=== PATIENT | female | born 1940 | race Caucasian/White ===

== ENCOUNTER 2019-02-09 08:35 | Observation (INO) | payer MEDICARE, SELFPAY ==
[2019-02-09] VITALS (12 sets, daily range): BP systolic 126–168; BP diastolic 57–115; PULSE 63–92; RESP 10–18; TEMP 36–36.7; O2SAT 97–100; BMI 22.3; BMI 22.6
--- NOTE | 2019-02-09 08:26 | ED_ITS ---
HPI - Chest Pain General Chief Complaint: Chest Pain Stated Complaint: Chest Pain, nausea Time Seen by Provider: 02/09/19 08:35 Source: patient and EMS Mode of arrival: EMS Limitations: no limitations History of Present Illness HPI narrative: Patient is a 78-year-old female with history of cardiac stents presenting with neck and shoulder pain. She states that for the last 10 days or so she has been quite fatigued. [place] is [place] cruise ship she has noted some chest discomfort off and on for the past 2 days. She can't discern when she notices it with exertion or at rest. It lasts for various length time. Every night she wakes up with pain across the base of her neck and top of her shoulders. She denies any shortness of breath. She lives in [place]. MD complaint: chest pain Onset (ago): day(s) Duration: intermittent Pain location: left chest Severity: mild Quality: aching Related Data Home Medications Medication Instructions Recorded Confirmed amlodipine 5 mg PO DAILY 02/09/19 02/09/19 aspirin [Justice Chewable Aspirin] 81 mg PO DAILY 02/09/19 02/09/19 famotidine [Pepcid] 20 mg PO BID 02/09/19 02/09/19 losartan 25 mg PO DAILY 02/09/19 02/09/19 pravastatin 20 mg PO DAILY 02/09/19 02/09/19 Allergies Allergy/AdvReac Type Severity Reaction Status Date / Time lisinopril Allergy Severe Cough Verified 02/09/19 08:33 risedronate sodium Allergy Severe Heartburn Verified 02/09/19 08:33 [From Actonel] cephalexin Allergy Mild Rash Verified 02/09/19 09:27 Review of Systems Review of Systems Narrative: GENERAL: Denies chills, fatigue, malaise, fever, sweats, travel HEENT: Denies sinus pain, ear pain, sore throat, difficulty swallowing, neck pain RESPIRATORY: Denies dyspnea, cough, wheezing, hemoptysis, sputum. CARDIOVASCULAR: See HPI GASTROINTESTINAL: Denies nausea, vomiting, abdominal pain, diarrhea, constipation, melena. : Denies dysuria, frequency, incontinence, hematuria, urinary retention, flank pain. MUSCULOSKELETAL: Denies weakness, joint pain, or bony pain SKIN: No rash, no erythema, no pruritus NEUROLOGIC: Denies weakness, dizziness, headache, numbness, change in speech, confusion PSYCHIATRIC: No concerning psychosocial issues. 12 point review of systems is negative except for those stated above and HPI [facility] Medical History (Updated 02/09/19 @ 11:57 by Taylor Crump DO) Coronary artery disease (Acute) Hyperlipidemia (Acute) Hypertension (Acute) Surgical History (Updated 02/09/19 @ 14:26 by Myrtle Leiva RN) Stented coronary artery (Acute) Family History (Updated 02/09/19 @ 14:27 by Myrtle Leiva RN) Father Emphysema lung Mother TIA (transient ischemic attack) Social History marital status: household members: spouse Smoking Status: Never smoker alcohol intake: never substance use type: does not use Family History (Updated 02/09/19 @ 14:27 by Myrtle Leiva RN) Father Emphysema lung Mother TIA (transient ischemic attack) Social History marital status: household members: spouse Smoking Status: Never smoker alcohol intake: never substance use type: does not use Exam Initial Vital Signs Initial Vital Signs: Vital Signs Temperature 97.7 F 02/09/19 08:24 Pulse Rate 92 H 02/09/19 08:24 Respiratory Rate 16 02/09/19 08:24 Blood Pressure 168/79 H 02/09/19 08:24 Pulse Oximetry 100 02/09/19 08:24 GENERAL: Well-appearing, well-nourished and in no acute distress. HEENT: Head atraumatic,EOMI, pupils reactive, face symmetric, moist mucous membranes CARDIOVASCULAR: Regular rate and rhythm without murmurs, rubs or gallops. RESPIRATORY: Breath sounds equal bilaterally, no wheezes rales or rhonchi. ABDOMEN: Soft, nontender. Normoactive bowel sounds all 4 quadrants. No guarding or rebound. EXTREMITIES: Normal range of motion, no clubbing or edema. Neurovascularly intact NEUROLOGICAL: Alert and oriented x4.Normal gait and speech. Cranial nerves II through XII grossly intact. SKIN: Warm, dry, no laceration, no petechiae, no rashes or lesions. Scores HEART Score Heart Score history: Moderately Suspicious Heart Score EKG: Normal Heart Score Age: > or = 65 years old Heart Score risk factors: > 3 risk factors or hx of atherosclerotic disease Heart Score troponin: < or = to normal limit Heart Score Total: 5 Course Orders Ordered: ED Orders 02/09/19 08:24 EKG-12 Lead Stat 02/09/19 08:25 XR chest 1V Stat 02/09/19 08:30 B Type Natriuretic Peptide Stat Complete Blood Count AUTO DIFF Stat Comprehensive Metabolic Panel Stat Lipase Stat Partial Thromboplastin Time Stat Prothrombin Time INR Stat Troponin & CK Cardiac Panel Stat 02/09/19 08:51 EKG-12 Lead Routine 02/09/19 10:50 Troponin I Stat 02/09/19 11:53 Education, smoking cessation ONGOING 02/10/19 Troponin I Stat EKG-12 Lead Routine 02/19/19 Troponin I Routine Amlodipine Besylate (Norvasc) 5 mg PO DAILY KEEGAN Aspirin (Aspirin Chew) 81 mg PO DAILY KEEGAN Enoxaparin Sodium (Lovenox) 40 mg SUBCUT DAILY KEEGAN Losartan Potassium (Cozaar) 25 mg PO DAILY KEEGAN Stored In Pharmacy 1 each PO PRN PRN PRN Reason: PER PROTOCOL Pravastatin Sodium (Pravachol) 20 mg PO DAILY KEEGAN Ranitidine HCl (Zantac) 150 mg PO BID KEEGAN Discontinued Medications Aspirin (Aspirin Chew) 324 mg PO NOW ONE Stop: 02/09/19 08:26 Last Admin: 02/09/19 08:43 Dose: 324 mg Documented by: ADILENE Vital Signs Vital signs: Vital Signs - 8 hr 02/09/19 09:35 02/09/19 10:36 02/09/19 11:00 Pulse Rate 71 70 63 Respiratory Rate 14 15 10 L Blood Pressure [Left Arm] 157/64 H 162/70 H 149/57 H Pulse Oximetry 100 98 97 02/09/19 12:00 Pulse Rate 73 Respiratory Rate 16 Blood Pressure [Left Arm] 154/65 H Pulse Oximetry 100 MDM - Chest Pain Lab Data Attestation: I reviewed the patient's lab results. Result diagrams: 02/09/19 08:30 02/09/19 08:30 Labs: Lab Results 02/09/19 02/09/19 02/09/19 Range/Units 08:30 08:30 08:30 WBC 7.9 (4.5-11.0) X10^3/uL RBC 4.62 (4.0-5.2) X10^6/uL Hgb 13.3 (12.0-16.0) g/dL Hct 39.7 (36-46) % MCV 85.9 (80-100) fL MCH 28.8 (26-34) PG MCHC 33.5 (30-36) % RDW 15.0 H (11.6-14.8) % Plt Count 183 (150-400) X10^3/uL Neut % (Auto) 75.7 H (50-75) % Lymph % (Auto) 18.9 L (25-40) % [place] % (Auto) 4.2 (3-14) % Eos % (Auto) 0.5 L (2-4) % Baso % (Auto) 0.7 (0-2) % Neut # (Auto) 6000 (1775-2920) /uL Lymph # (Auto) 1500 (5712-2829) /uL [place] # (Auto) 300 (0-900) /uL Eos # (Auto) 0 (0-450) /uL Baso # (Auto) 100 (0-100) /uL PT 10.6 (10.1-12.7) SECONDS INR 0.9 (0.9-1.3) APTT 30 (26.4-36.2) SECONDS Sodium 143 (137-145) mmol/L Potassium 3.8 (3.4-5.1) mmol/L Chloride 106 (98-107) mmol/L Carbon Dioxide 26 (22-32) mmol/L BUN 16 (7-17) mg/dL Creatinine 0.80 (0.52-1.04) mg/dL Estimated GFR > 60.0 (>60) mL/min BUN/Creatinine Ratio 20.0 (6-22) Glucose 114 H (80-110) mg/dL Calcium 9.1 (8.4-10.2) mg/dL Total Bilirubin 0.5 (0.2-1.3) mg/dL AST 26 (14-36) IU/L ALT 12 (9-52) IU/L Alkaline Phosphatase 72 (38-126) U/L Total Creatine Kinase 145 H (30-135) U/L CK-MB (CK-2) 1.40 (<2.37) ng/mL CK-MB (CK-2) Rel Index 1.0 L (1.5-5.0) % Troponin I < 0.012 (0.01-0.034) ng/mL B-Natriuretic Peptide 280 H (<100) Total Protein 7.8 (6.3-8.2) g/dL Albumin 4.6 (3.5-5.0) g/dL Globulin 3.2 (1.7-4.1) g/dL Albumin/Globulin Ratio 1.4 (1.0-2.8) Lipase 137 (23-300) U/L 02/09/19 Range/Units 10:50 WBC (4.5-11.0) X10^3/uL RBC (4.0-5.2) X10^6/uL Hgb (12.0-16.0) g/dL Hct (36-46) % MCV (80-100) fL MCH (26-34) PG MCHC (30-36) % RDW (11.6-14.8) % Plt Count (150-400) X10^3/uL Neut % (Auto) (50-75) % Lymph % (Auto) (25-40) % [place] % (Auto) (3-14) % Eos % (Auto) (2-4) % Baso % (Auto) (0-2) % Neut # (Auto) (0174-4241) /uL Lymph # (Auto) (8449-3792) /uL [place] # (Auto) (0-900) /uL Eos # (Auto) (0-450) /uL Baso # (Auto) (0-100) /uL PT (10.1-12.7) SECONDS INR (0.9-1.3) APTT (26.4-36.2) SECONDS Sodium (137-145) mmol/L Potassium (3.4-5.1) mmol/L Chloride (98-107) mmol/L Carbon Dioxide (22-32) mmol/L BUN (7-17) mg/dL Creatinine (0.52-1.04) mg/dL Estimated GFR (>60) mL/min BUN/Creatinine Ratio (6-22) Glucose (80-110) mg/dL Calcium (8.4-10.2) mg/dL Total Bilirubin (0.2-1.3) mg/dL AST (14-36) IU/L ALT (9-52) IU/L Alkaline Phosphatase (38-126) U/L Total Creatine Kinase (30-135) U/L CK-MB (CK-2) (<2.37) ng/mL CK-MB (CK-2) Rel Index (1.5-5.0) % Troponin I < 0.012 (0.01-0.034) ng/mL B-Natriuretic Peptide (<100) Total Protein (6.3-8.2) g/dL Albumin (3.5-5.0) g/dL Globulin (1.7-4.1) g/dL Albumin/Globulin Ratio (1.0-2.8) Lipase (23-300) U/L Urine Dip Bedside Urine Glucose Negative Bedside Urine Bilirubin - Negative Bedside Urine Ketone - Negative Urine Specific [place] 1.010 Bedside Urine Occult Blood - Negative Bedside Urine pH 7.0 Bedside Urine Protein - Negative Bedside Urine Urobilinogen - Negative Bedside Urine Nitrite - Negative Bedside Urine Leukocytes - Negative Esterase Imaging Data Chest x-ray: Radiologist's impression: PROCEDURE: XR CHEST 1V INDICATIONS: chest pain TECHNIQUE: One view of the chest was acquired. COMPARISON: None. FINDINGS: Surgical changes and devices: None. Lungs and pleura: Lungs are clear. No pleural effusions or pneumothorax. Mediastinum: Mediastinal contours appear normal. Heart size is normal. There is aortic atherosclerosis. Bones and chest wall: No suspicious bony lesions. The bone mineralization appears decreased. Overlying soft tissues appear unremarkable. IMPRESSION: No acute cardiopulmonary process is evident. Dictated by: Zi Garcia M.D. on 02/09/2019 at 7:50 ECG Data Attestation: I personally reviewed and interpreted this ECG as follows: Prior ECG tracings: not available for review Interpretation: Normal sinus rhythm rate 76 p.r. interval 149 QRS 83 QTC 418 T- wave inversion noted in lead 3 less than [address]-depression in V5 no ST elevations no priors to compare EKG 2. Sinus rhythm rate 77 persistent T-wave inversions noted in lead [address] changes MDM Narrative Medical decision making narrative: The patient remains chest pain-free in the ED she still has some intermittent left shoulder pain. She was under the impression she was being medevac back to [place]. I personally called our emergency insurance and they have not sent any sort of transportation. She has 2-troponins. With her history of coronary artery disease and symptoms I recommended cardiac rule out. Dr. river updated on patient's symptoms test results agrees with observation Discharge Plan Departure Patient Disposition: Admitted as Observation Clinical Impression: Chest pain Qualifiers: Chest pain type: unspecified Qualified Code(s): R07.9 - Chest pain, unspecified Discharge Date/Time: 02/09/19 13:15 Admit Date/Time: 02/09/19 12:26 Admit Provider: Carmella Burnette
[2019-02-09] MEDS: ASPIRIN 81 MG CHEW TAB 324 MG PO (08:43)
[2019-02-09 08:47] LABS: Add Manual Diff / Slide Review NO; Basophils Absolute Auto 100 /uL (0-100); Basophils Percent Auto 0.7 % (0-2); Eosinophils Absolute Auto 0 /uL (0-450); Eosinophils Percent Auto 0.5 % (2-4); Hematocrit 39.7 % (36-46); Hemoglobin 13.3 g/dL (12.0-16.0); Lymphocytes Absolute Auto 1500 /uL (1100-4500); Lymphocytes Percent Auto 18.9 % (25-40); Mean Corpuscular HGB Conc 33.5 % (30-36); Mean Corpuscular Hemoglobin 28.8 PG (26-34); Mean Corpuscular Volume 85.9 fL (80-100); Monocytes Absolute Auto 300 /uL (0-900); Monocytes Percent Auto 4.2 % (3-14); Neutrophils Absolute Auto 6000 /uL (1500-7000); Neutrophils Percent Auto 75.7 % (50-75); Platelet Count 183 X10^3/uL (150-400); Red Blood Cell Count 4.62 X10^6/uL (4.0-5.2); White Blood Cell Count 7.9 X10^3/uL (4.5-11.0)
[2019-02-09 08:56] LABS: INR 0.9 (0.9-1.3); Prothrombin Time 10.6 SECONDS (10.1-12.7)
[2019-02-09 08:58] LABS: PTT Partial Thromboplastin Tim 30 SECONDS (26.4-36.2)
[2019-02-09 08:59] LABS: Alanine Aminotransferase 12 IU/L (9-52); Albumin 4.6 g/dL (3.5-5.0); Albumin Globulin Ratio 1.4 (1.0-2.8); Alkaline Phosphatase 72 U/L (38-126); Aspartate Aminotransferase 26 IU/L (14-36); Bilirubin Total 0.5 mg/dL (0.2-1.3); Blood Urea Nitrogen 16 mg/dL (7-17); Calcium 9.1 mg/dL (8.4-10.2); Carbon Dioxide 26 mmol/L (22-32); Chloride 106 mmol/L (98-107); Creatine Kinase 145 U/L (30-135); Estimated Glomerular Filt Rate > 60.0 mL/min (>60); Globulin 3.2 g/dL (1.7-4.1); Glucose 114 mg/dL (80-110); HEMOLYSIS < 15 (0-50); Lipase 137 U/L (23-300); Potassium 3.8 mmol/L (3.4-5.1); Sodium 143 mmol/L (137-145); Total Protein 7.8 g/dL (6.3-8.2)
[2019-02-09 09:08] LABS: B Type Natriuretic Peptide 280 (<100)
[2019-02-09 09:10] LABS: Troponin I < 0.012 ng/mL (0.01-0.034)
[2019-02-09 11:27] LABS: Troponin I < 0.012 ng/mL (0.01-0.034)
--- NOTE | 2019-02-09 13:49 | PM.HP.1 ---
History of Present Illness History of Present Illness Chief complaint: Chest Pain, nausea Patient History Medical History Coronary artery disease (Acute) Hyperlipidemia (Acute) Hypertension (Acute) Social History (Updated 02/09/19 @ 08:43 by Taylor Crump DO) marital status: Smoking Status: Never smoker alcohol intake: never substance use type: does not use Family & Social History Safety & Behavioral: Feels Safe in Current Yes Environment Been Physically Hurt or No Threatened By a Person Tobacco & Substance use: Smoking Status Never smoker alcohol intake never Substance Use Type does not use Meds Home Medications and Allergies Home Medications Medication Instructions Recorded Confirmed Type amlodipine 5 mg PO DAILY 02/09/19 02/09/19 History aspirin [Justice Chewable Aspirin] 81 mg PO DAILY 02/09/19 02/09/19 History famotidine 20 mg PO BID 02/09/19 02/09/19 History losartan 25 mg PO DAILY 02/09/19 02/09/19 History pravastatin 20 mg PO DAILY 02/09/19 02/09/19 History Allergies Allergy/AdvReac Type Severity Reaction Status Date / Time lisinopril Allergy Severe Cough Verified 02/09/19 08:33 risedronate sodium Allergy Severe Heartburn Verified 02/09/19 08:33 [From Actonel] cephalexin Allergy Mild Rash Verified 02/09/19 09:27 Exam Vital Signs (past 8 hours): - 02/09/19 08:24 02/09/19 09:00 02/09/19 09:35 Temperature 97.7 F Pulse Rate 92 H 76 71 Respiratory Rate 16 16 14 Blood Pressure 168/79 H Blood Pressure [Left Arm] 150/115 H 157/64 H Pulse Oximetry 100 100 100 02/09/19 10:36 02/09/19 11:00 02/09/19 12:00 Temperature Pulse Rate 70 63 73 Respiratory Rate 15 10 L 16 Blood Pressure Blood Pressure [Left Arm] 162/70 H 149/57 H 154/65 H Pulse Oximetry 98 97 100 02/09/19 13:18 Temperature 98.1 F Pulse Rate 71 Respiratory Rate 16 Blood Pressure 132/66 Blood Pressure [Left Arm] Pulse Oximetry 100 Oxygen Delivery Method Room Air Oxygen Flow Rate 0 Objective Labs Result Diagrams: 02/09/19 08:30 02/09/19 08:30 Labs: Laboratory Results - last 24 hr 02/09/19 02/09/19 02/09/19 08:30 08:30 08:30 WBC 7.9 RBC 4.62 Hgb 13.3 Hct 39.7 MCV 85.9 MCH 28.8 MCHC 33.5 RDW 15.0 H Plt Count 183 Neut % (Auto) 75.7 H Lymph % (Auto) 18.9 L [place] % (Auto) 4.2 Eos % (Auto) 0.5 L Baso % (Auto) 0.7 Neut # (Auto) 6000 Lymph # (Auto) 1500 [place] # (Auto) 300 Eos # (Auto) 0 Baso # (Auto) 100 PT 10.6 INR 0.9 APTT 30 Sodium 143 Potassium 3.8 Chloride 106 Carbon Dioxide 26 BUN 16 Creatinine 0.80 Estimated GFR > 60.0 BUN/Creatinine Ratio 20.0 Glucose 114 H Calcium 9.1 Total Bilirubin 0.5 AST 26 ALT 12 Alkaline Phosphatase 72 Total Creatine Kinase 145 H CK-MB (CK-2) 1.40 CK-MB (CK-2) Rel Index 1.0 L Troponin I < 0.012 B-Natriuretic Peptide 280 H Total Protein 7.8 Albumin 4.6 Globulin 3.2 Albumin/Globulin Ratio 1.4 Lipase 137 02/09/19 10:50 WBC RBC Hgb Hct MCV MCH MCHC RDW Plt Count Neut % (Auto) Lymph % (Auto) [place] % (Auto) Eos % (Auto) Baso % (Auto) Neut # (Auto) Lymph # (Auto) [place] # (Auto) Eos # (Auto) Baso # (Auto) PT INR APTT Sodium Potassium Chloride Carbon Dioxide BUN Creatinine Estimated GFR BUN/Creatinine Ratio Glucose Calcium Total Bilirubin AST ALT Alkaline Phosphatase Total Creatine Kinase CK-MB (CK-2) CK-MB (CK-2) Rel Index Troponin I < 0.012 B-Natriuretic Peptide Total Protein Albumin Globulin Albumin/Globulin Ratio Lipase
--- NOTE | 2019-02-09 13:50 | PC.NURSE ---
Day shift: Pt arrived on unit at approx 1320 from ED. Oriented to room and call light. No Hx of falls. VS WNL. Denies any chest pain. No nausea. Skin intact. Spouse in room for support. Pt reports being on a cruiseship/boat and not drinking as many fluids as she normal does at home. Pt on Tele per . SBA when OOB. Steady on feet.
[2019-02-10 05:00] VITALS: BP 146/74; PULSE 61; RESP 16; TEMP 36.4; O2SAT 98
[2019-02-10 05:31] LABS: Troponin I < 0.012 ng/mL (0.01-0.034)
--- NOTE | 2019-02-10 06:09 | PM.HP.1 ---
History of Present Illness History of Present Illness Date Patient Seen: 02/09/19 Time Patient Seen: 22:15 Chief complaint: Chest Pain, nausea Narrative: Ms. Tamy Strong is a 78-year-old female patient with history significant for hypertension, hyperlipidemia, coronary artery disease status post coronary stent who presents to the hospital for evaluation of neck and shoulder pain. Patient reports having intermittent neck and shoulder pain for 2 days. She was going on a cruise reports that the pain was worsening across the posterior shoulders and base of the neck. She had associated symptoms nausea but no vomiting. She has had these pains off and on previously but not this strong and not with nausea. She denies fevers or chills, headaches or dizziness, nasal congestion or sore throat. She reports no chest pain or palpitations, shortness of breath cough or wheezing though she does have exertional dyspnea with stairs. She has no abdominal pain but has no diarrhea but does complain complain of constipation. The patient is independent in all her activities of daily living. Upon arrival in the ER the patient is afebrile with a temperature of 97.7?, heart rate 92, blood pressure elevated 168/79, respiratory rate of 16 and saturating 100% on room air. In EKGs taken which finds a normal sinus rhythm with a ventricular rate of 77 with no ectopy, no conduction delay, inverted T-wave in lead 3 but no other indication of ischemia or infarct. She had a chest x-ray taken which shows no acute cardiopulmonary processes and a normal heart size. Laboratory analysis 13 finding white count 7.7, hematocrit of 13.3 and hemoglobin 39.7 and platelets of 183. Her coagulations within normal limits as are her chemistries. Her nonfasting glucose is 114. Her LFTs are within normal range and lipase is negative. She has an elevated total CK at 1:45 a.m. with a low index of 1 0. Her troponin is negative at less than 0.012. She has a mildly elevated BNP 280. The patient is admitted to the hospital for acute rule out acute coronary syndrome. Patient History Medical History Coronary artery disease (Acute) Hyperlipidemia (Acute) Hypertension (Acute) Surgical History Stented coronary artery (Acute) Family History (Updated 02/09/19 @ 14:27 by Myrtle Leiva RN) Father Emphysema lung Mother TIA (transient ischemic attack) Social History marital status: household members: spouse Smoking Status: Never smoker alcohol intake: never substance use type: does not use Family & Social History Family History Father Emphysema lung Mother TIA (transient ischemic attack) Social History: household members spouse Prior Living Arrangements House Safety & Behavioral: Feels Safe in Current Yes Environment Been Physically Hurt or No Threatened By a Person Suicidal Ideation Description None Suicide Plan Description No Plan Tobacco & Substance use: Smoking Status Never smoker alcohol intake never Substance Use Type does not use Comment: The patient is currently traveling and had to get off her cruise ship for evaluation. She lives in a single family 1 [address] home in [place]. She is for 25 years. She provides a family history of her father having emphysema, her mother having a TIA and a brother with Parkinson's and a sister who is in good health. Smoking: The patient has never smoked Alcohol: The patient does not consume alcohol. Substance use: The patient denies recreation pharmaceuticals herbal or cannabis products. Advanced directives: The patient does have a formal advanced directive and indicates that she wishes to be FULL CODE. She designates her friend Chino Eastman to be her surrogate decision maker. Meds Home Medications and Allergies Home Medications Medication Instructions Recorded Confirmed Type amlodipine 5 mg PO DAILY 02/09/19 02/09/19 History aspirin [Justice Chewable Aspirin] 81 mg PO DAILY 02/09/19 02/09/19 History famotidine [Pepcid] 20 mg PO BID 02/09/19 02/09/19 History losartan 25 mg PO DAILY 02/09/19 02/09/19 History pravastatin 20 mg PO DAILY 02/09/19 02/09/19 History Allergies Allergy/AdvReac Type Severity Reaction Status Date / Time lisinopril Allergy Severe Cough Verified 02/09/19 08:33 risedronate sodium Allergy Severe Heartburn Verified 02/09/19 08:33 [From Actonel] cephalexin Allergy Mild Rash Verified 02/09/19 09:27 Review of Systems Review of Systems ROS Unobtainable: All systems reviewed & are unremarkable except as noted in HPI and below Exam Vital Signs (past 8 hours): - 02/09/19 23:15 02/09/19 23:30 02/10/19 05:00 Temperature 98 F 97.6 F Pulse Rate 67 61 Respiratory Rate 16 16 Blood Pressure 139/69 146/74 H Pulse Oximetry 97 99 98 Oxygen Delivery Method Room Air Oxygen Flow Rate 1 Narrative Exam Narrative: GENERAL APPEARANCE: well developed, well nourished, in no acute distress. HEENT: Normocephalic, PERRLA, conjunctiva clear, EOMs intact without nystagmus, no rhinorrhea, mucous membranes are moist and pink without lesions or exudate. NECK/THYROID: neck supple, accentuated cervical lordosis most prominent at C6-7, no palpable muscle spasms of the kendy spinous or trapezius muscles, no JVD, no carotid bruit, no thyromegaly, trachea midline. LYMPH NODES: no cervical or supraclavicular lymphadenopathy. SKIN: warm and dry, no visible suspicious lesions or rashes, good turgor. HEART: regular rate and rhythm, S1-S2 without murmur, no rubs or gallops, brisk capillary refill, no edema LUNGS: clear to auscultation bilaterally, no coarseness crackles or wheezing, no cough present CHEST: Symmetrical movement, no accessory muscle use, no pain to AP and lateral compression. ABDOMEN: Soft, no distention, no epigastric or abdominal tenderness on palpation, no organomegaly,active bowel tones. BACK: Normal curvature, no step-offs, no palpable muscle spasms, nontender to palpation, no CVA tenderness on percussion EXTREMITIES: moves all extremities, strength is 5/5 and symmetrical, no deformities or joint effusions. NEUROLOGIC: AAO x4, no focal neurologic deficits,motor strength normal upper and lower extremities, sensory exam intact to light touch PSYCH: alert, cognitive function intact, good eye contact, appropriate with stable behavior Objective Labs Result Diagrams: 02/09/19 08:30 02/09/19 08:30 Labs: Laboratory Results - last 24 hr 02/09/19 02/09/19 02/09/19 08:30 08:30 08:30 WBC 7.9 RBC 4.62 Hgb 13.3 Hct 39.7 MCV 85.9 MCH 28.8 MCHC 33.5 RDW 15.0 H Plt Count 183 Neut % (Auto) 75.7 H Lymph % (Auto) 18.9 L [place] % (Auto) 4.2 Eos % (Auto) 0.5 L Baso % (Auto) 0.7 Neut # (Auto) 6000 Lymph # (Auto) 1500 [place] # (Auto) 300 Eos # (Auto) 0 Baso # (Auto) 100 PT 10.6 INR 0.9 APTT 30 Sodium 143 Potassium 3.8 Chloride 106 Carbon Dioxide 26 BUN 16 Creatinine 0.80 Estimated GFR > 60.0 BUN/Creatinine Ratio 20.0 Glucose 114 H Calcium 9.1 Total Bilirubin 0.5 AST 26 ALT 12 Alkaline Phosphatase 72 Total Creatine Kinase 145 H CK-MB (CK-2) 1.40 CK-MB (CK-2) Rel Index 1.0 L Troponin I < 0.012 B-Natriuretic Peptide 280 H Total Protein 7.8 Albumin 4.6 Globulin 3.2 Albumin/Globulin Ratio 1.4 Lipase 137 02/09/19 02/10/19 10:50 04:52 WBC RBC Hgb Hct MCV MCH MCHC RDW Plt Count Neut % (Auto) Lymph % (Auto) [place] % (Auto) Eos % (Auto) Baso % (Auto) Neut # (Auto) Lymph # (Auto) [place] # (Auto) Eos # (Auto) Baso # (Auto) PT INR APTT Sodium Potassium Chloride Carbon Dioxide BUN Creatinine Estimated GFR BUN/Creatinine Ratio Glucose Calcium Total Bilirubin AST ALT Alkaline Phosphatase Total Creatine Kinase CK-MB (CK-2) CK-MB (CK-2) Rel Index Troponin I < 0.012 < 0.012 B-Natriuretic Peptide Total Protein Albumin Globulin Albumin/Globulin Ratio Lipase Assessment & Plan Assessment & Plan narrative: This is a 78-year-old female patient was admitted to the hospital with episodic neck and shoulder pain with associated nausea in the setting known cardiac disease and cardiac stenting. 1. Atypical chest pain, acute, present on admission, active. -the patient has a known history of cardiac disease and previous cardiac stenting. -low neck and posterior shoulder back pain with associated episodes of nausea, no diaphoresis. Patient does endorse dyspnea on exertion. -12 lead EKG is normal sinus rhythm without ectopy, conduction delay or bundle branch block with inverted T-wave in lead 3 but no other indications of ischemia or infarct. Will recheck 12 lead EKG in the morning. -1st troponin is 0.012, will track troponins. -will obtain an echocardiogram in the morning -will obtain a nuclear med stress test. -patient is already taking aspirin 81 mg daily. 2. Essential Hypertension, chronic, present on admission, active. -blood pressure on admission to the emergency department was 168/79 and remains mildly elevated in the 140s over 70s. -patient denies shortness of breath or headache. -will continue patient's home regimen of amlodipine 5 mg daily. 3. Hyperlipidemia, chronic, presumed stable, active -will obtain a lipid panel -will continue patient's home regimen of pravastatin 20 mg daily. The patient admitted to the hospital for further evaluation and monitoring and risk for potential complications or adverse events. She is admitted as an observation patient with expected length of stay to be less than 2 midnights. Scores GCS Richie coma scale eye opening: Spontaneous Richie coma scale verbal response: Orientated Richie coma scale motor response: Obey commands Richie coma scale total score: 15 Quality VTE Deep Vein Thrombosis/Pulmonary Embolism Present on Admission: No
[2019-02-10 06:53] LABS: Cholesterol 156 mg/dL (140-199); HDL Cholesterol 64 mg/dL (40-60); LDL Cholesterol Calculated 83 mg/dL (<100); Triglycerides 45 mg/dL (35-150)
[2019-02-10 07:41] VITALS: O2SAT 97
[2019-02-10 08:00] VITALS: BP 158/73; PULSE 63; RESP 16; TEMP 36.5; O2SAT 100
--- NOTE | 2019-02-10 08:49 | PC.NURSE ---
Day shift: Pt off unit for stress test now.
--- NOTE | 2019-02-10 09:16 | PM.TREADMILL ---
Cardiac Stress Test Report Referral & Results Date Patient Seen: 02/10/19 Time Patient Seen: 09:17 Requesting provider: Carmella Burnette Indication: Coronary disease Rest ECG: Unremarkable Procedure Note: Today following both written and verbal informed consent the patient was exercised according to a standard Luciano protocol patient went for a total of 6 minutes 36 seconds achieving a maximum heart rate of 126 maximum systolic blood pressure of 158. This is approximately 7.0 METS. Exercise was terminated at this point because of targets were met and patient unable to continue due to fatigue. Patient was also given Cardiolite through a previously started Hep-Lock IV by the diagnostic imaging staff approximately 1 minute prior to the cessation of exercise. No ST-T segment changes Normal heart rate response somewhat limited blood pressure response to exercise Rare PVC identified Functional aerobic impairment rates-40% on the active scale or 140% of normal Impression: No ECG evidence of ischemia Excellent exercise capacity Please see perfusion imaging report as well Please note: Actual ECG tracings can be found in the PACS system.
[2019-02-10] MEDS: AMLODIPINE 5 MG TABLET PO (10:26)
[2019-02-10] MEDS: ENOXAPARIN 40 MG/0.4 ML SYRINGE SUBCUT (10:26)
[2019-02-10] MEDS: LOSARTAN 25 MG TABLET PO (10:28)
--- NOTE | 2019-02-10 11:40 | DI.ECHO.S_ITS ---
Echocardiogram Report + + :Name: CHAGO VICTOR Study Date: 02/10/2019 Height: 63 in : :[facility] Weight: 127 lb : :Account #: [id number] Gender: Female BSA: 1.6 m2 : :: 1940 Age: 78 yrs BP: 132/66 mmHg: :Reason For Study: Chest pain : : Performed By: Patti Oden : :Referring: ESAU HUNT : + + Interpretation Summary Normal sinus rhythm. Normal LV size, wall thickness, wall motion and LV systolic function. EF is 60-65%. Normal chamber sizes. No significant valvular abnormalities. No prior study available for comparison. Procedure: A two-dimensional transthoracic echocardiogram with color flow and Doppler was performed. The study quality was technically adequate. There is no prior echocardiogram noted for this patient. The patient was in normal sinus rhythm during the exam. Left Ventricle: The left ventricle is normal in size, wall thickness, and systolic function without any focal wall motion abnormalities. The ejection fraction is estimated to be 60-65%. Diastolic parameters suggest a relaxation abnormality of the left ventricle, consistent with probable normal filling pressures. Right Ventricle: The right ventricle grossly appears normal in size with probable normal systolic function. Atria: Borderline left atrial enlargement. Right atrial size is normal. Mitral Valve: The mitral valve is normal in structure and function. There is no mitral regurgitation noted. Aortic Valve: The aortic valve is trileaflet. The aortic valve opens well. No aortic regurgitation is present. Tricuspid Valve: The tricuspid valve is normal in structure and function. There is trace tricuspid regurgitation. The right ventricular systolic pressure is estimated to be at least 24 mmHg based on an estimated right atrial pressure of 3 mm Hg. Pulmonic Valve: The pulmonic valve is not well seen, but is grossly normal. There is mild pulmonic regurgitation. Great Vessels: The aortic root is normal size. The dimensions of the ascending aorta are normal. The aortic arch is normal in size. The IVC is of normal diameter and collapses greater than 50% with a sniff. This suggests a low right atrial pressure of 3 mm Hg. Pericardium/ Pleura There is no pericardial effusion. There is no pleural effusion. MMode/2D Measurements & Calculations LVIDd: 4.0 cm Ao root diam: 2.9 cm LVIDs: 2.4 cm Aortic Jxn: 2.4 cm FS: 41.3 % asc Aorta Diam: 2.6 cm EPSS: 0.37 cm Ao Arch Diam (Prox Trans): 2.4 cm IVSd: 0.93 cm LVPWd: 0.71 cm LV michaels. diameter/BSA (cm/m^2): 2.5 LV sys. diameter/BSA (cm/m^2): 1.5 LA dimension: 3.4 cm RA long axis: 5.3 cm LA A2 area: 18.5 cm2 RA area: 17.3 cm2 LA A4 area: 20.6 cm2 RA vol: 47.6 ml LA length (vol): 5.0 cm RA : 29.8 ml/m2 LA vol: 65.3 ml IVC diam: 1.9 cm LA vol index: 40.9 ml/m2 RVDd major: 4.7 cm RVD1 (basal): 3.1 cm RVD2 (mid): 2.4 cm Doppler Measurements & Calculations Ao V2 max: 140.0 cm/sec MV E max omer: 80.5 cm/sec Ao V2 mean: 86.4 cm/sec MV A max omer: 102.7 cm/sec Ao max P.8 mmHg MV E/A: 0.78 Ao mean P.6 mmHg Med Peak E' Omer: 3.6 cm/sec Ao V2 VTI: 32.1 cm E/E' med: 22.5 Lat Peak E' Omer: 4.9 cm/sec E/E' lat: 16.4 E/e' average: 19.4 MV dec time: 0.24 sec MV P1/2t: 75.0 msec TR max omer: 230.4 cm/sec MV P1/2t max omer: 81.0 cm/sec TR max P.2 mmHg MVA(P1/2t): 2.9 cm2 PA V2 max: 85.6 cm/sec PA V2 mean: 53.2 cm/sec PA mean P.4 mmHg PA Accel Time: 0.15 sec _ Electronically signed by: Selam Box M.D. on Reading Physician:02/10/2019 04:39 PM
[2019-02-10 12:00] VITALS: BP 124/67; PULSE 65; RESP 16; TEMP 36.5; O2SAT 99
--- NOTE | 2019-02-10 12:49 | PM.DS.1 ---
History of Present Illness History of Present Illness Date Patient Seen: 02/10/19 Time Patient Seen: 11:00 Chief complaint: Chest Pain, nausea Narrative: As per CAROLYN Mccracken Ms. Tamy Strong is a 78-year-old female patient with history significant for hypertension, hyperlipidemia, coronary artery disease status post coronary stent who presents to the hospital for evaluation of neck and shoulder pain. Patient reports having intermittent neck and shoulder pain for 2 days. She was going on a cruise reports that the pain was worsening across the posterior shoulders and base of the neck. She had associated symptoms nausea but no vomiting. She has had these pains off and on previously but not this strong and not with nausea. She denies fevers or chills, headaches or dizziness, nasal congestion or sore throat. She reports no chest pain or palpitations, shortness of breath cough or wheezing though she does have exertional dyspnea with stairs. She has no abdominal pain but has no diarrhea but does complain complain of constipation. The patient is independent in all her activities of daily living. Upon arrival in the ER the patient is afebrile with a temperature of 97.7?, heart rate 92, blood pressure elevated 168/79, respiratory rate of 16 and saturating 100% on room air. In EKGs taken which finds a normal sinus rhythm with a ventricular rate of 77 with no ectopy, no conduction delay, inverted T-wave in lead 3 but no other indication of ischemia or infarct. She had a chest x-ray taken which shows no acute cardiopulmonary processes and a normal heart size. Laboratory analysis 13 finding white count 7.7, hematocrit of 13.3 and hemoglobin 39.7 and platelets of 183. Her coagulations within normal limits as are her chemistries. Her nonfasting glucose is 114. Her LFTs are within normal range and lipase is negative. She has an elevated total CK at 1:45 a.m. with a low index of 1 0. Her troponin is negative at less than 0.012. She has a mildly elevated BNP 280. The patient is admitted to the hospital for acute rule out acute coronary syndrome. Discharge Providers Provider Date of admission: 02/09/19 12:26 Discharge Date: 02/10/19 Discharge provider: Kole Franz DO Summary Hospital Course Discharge Diagnosis: 1. Atypical chest pain, acute, present on admission, active. 2. Essential Hypertension, chronic, present on admission, active. 3. Hyperlipidemia, chronic, presumed stable, active Hospital Course: This is a 78-year-old female patient with a past medical history of hypertension, hyperlipidemia, and CAD who was admitted to the hospital with episodic neck and shoulder pain with associated nausea in the setting known cardiac disease and cardiac stenting. 1. Atypical chest pain, acute, present on admission, active. - Stress testing negative as inpatient, she reports improvement here. ACS was ruled out. May have been musculoskeletal in origin. Recommend follow up with outpatient wooden furniture polisher and PMD. -the patient has a known history of cardiac disease and previous cardiac stenting. -low neck and posterior shoulder back pain with associated episodes of nausea, no diaphoresis. Patient does endorse dyspnea on exertion. -12 lead EKG is normal sinus rhythm without ectopy, conduction delay or bundle branch block with inverted T-wave in lead 3 but no other indications of ischemia or infarct. Will recheck 12 lead EKG in the morning. -troponins were negative x3. -patient underwent a nuclear stress test which was unremarkable. She was discharged home. -She should follow up with her wooden furniture polisher as previously scheduled. 2. Essential Hypertension, chronic, present on admission, active. -will continue patient's home regimen of amlodipine 5 mg daily. 3. Hyperlipidemia, chronic, presumed stable, active -will continue patient's home regimen of pravastatin 20 mg daily. -LDL of 83, will defer management to outpatient providers. Status at Discharge Cognitive/behavioral status at discharge: oriented Functional status at discharge: independent ambulation Overall status at discharge: patient is back to baseline Time Spent with Patient Time spent: Greater than 30 minutes Exam Vital Signs (past 8 hours): - 02/10/19 05:00 02/10/19 07:41 02/10/19 08:00 Temperature 97.6 F 97.7 F Pulse Rate 61 63 Respiratory Rate 16 16 Blood Pressure 146/74 H 158/73 H Pulse Oximetry 98 97 100 Oxygen Delivery Method Room Air Oxygen Flow Rate 1 Narrative Exam Narrative: GENERAL APPEARANCE: Well developed, well nourished, in no acute distress. SKIN: Inspection of the skin reveals no rashes, ulcerations or petechiae. HEENT: The sclerae were anicteric and conjunctivae were pink and moist. Extraocular movements were intact and pupils were equal, round with normal accommodation. External inspection of the ears and nose showed no scars, lesions, or masses. Lips, teeth, and gums showed normal mucosa. The oral mucosa, hard and soft palate, tongue and posterior pharynx were unremarkable. NECK: Supple and symmetric. There was no thyroid enlargement, and no tenderness, or masses were felt. CHEST: Normal AP diameter and normal contour without any kyphoscoliosis. LUNGS: Auscultation of the lungs revealed no wheezes, rhonchi, or rales. CARDIOVASCULAR: There was a regular rate and rhythm without any murmurs, gallops, rubs. Peripheral pulses were 2+ and symmetric. ABDOMEN: Soft and nontender with normal bowel sounds. No ascites was noted. MUSCULOSKELETAL: There was no tenderness or effusions noted. Muscle strength and tone were normal. EXTREMITIES: No cyanosis, clubbing or edema. NEUROLOGIC: Alert and oriented x 3. Normal affect. Gait was normal. Strength is +5/5 in the Upper Extremities and Lower Extremities Bilaterally. Sensation to touch was normal. Objective Labs Result Diagrams: 02/09/19 08:30 02/09/19 08:30 Labs: Laboratory Results - last 24 hr 02/10/19 02/10/19 04:52 04:52 Troponin I < 0.012 Triglycerides 45 Cholesterol 156 LDL Cholesterol, Calc 83 HDL Cholesterol 64 H Discharge Plan Discharge Plan Patient Disposition: Home Discharge comment: You were admitted to the hospital given your history of heart disease. Your stress test was normal and you did not have a heart attack. You should follow up with your primary care provider in the next few weeks and your outpatient wooden furniture polisher as previously scheduled. No changes were made to your medications. Discharge Med Rec/Prescriptions Prescriptions: Continued amlodipine 5 mg Tablet 5 mg PO DAILY RF: 0 losartan 25 mg Tablet 25 mg PO DAILY RF: 0 pravastatin 20 mg Tablet 20 mg PO DAILY RF: 0 aspirin [Justice Chewable Aspirin] 81 mg Tablet,Chewable 81 mg PO DAILY RF: 0 famotidine [Pepcid] 20 mg Tablet 20 mg PO BID RF: 0 Provider Discharge Instructions Diet: Diet as Tolerated Activity: As tolerated Discharge Data Attending Provider: Carmella Burnette Admit Date/Time: 02/09/19 12:26 Quality VTE Deep Vein Thrombosis/Pulmonary Embolism Present on Admission: No
--- NOTE | 2019-02-10 14:30 | CM.DANOTE ---
DCP/Assessment: Reviewed chart. Patient is a 78yr old female admitted to [facility] with chest pain. No PCP listed. Primary payor is 1)Med[employer]are 2)[employer]. Met with patient and spouse at bedside. Patient and spouse report that they reside in [place], [place]. Patient I in ADL's and plans to d/c home today. Patient and spouse are unsure when they will be returning to [place]. No identified d/c planning needs at this time. P: Home today. DAKOTA Alberto Discharge Planning/Care Management Advanced directive, confirm from FAMILY Start: 02/09/19 14:21 Freq: Q24H Status: Active Protocol: Document 02/09/19 14:21 CLL (Rec: 02/09/19 14:22 CLL [id number]) Advance Directive, confirm on record Time 14:00 Person contacted sayda thompson Copy received No CM Discharge Assessment Start: 02/10/19 14:22 Freq: Status: Active Protocol: Document 02/10/19 14:23 KJS (Rec: 02/10/19 14:30 KJS [id number]) Discharge Planning Assessment Assigned Senior Administrator Support DAKOTA Alberto Advance Directives? Yes History Provided By Patient,Medical Record Prior Living Arrangements House Household Members spouse Type of transporation used prior to Drives own vehicle admit Willing to Return to Facility? No Independent with ADL's Yes Is patient alert and oriented? Yes Caregiver for Another No Barriers to Discharge No Discharge Plan Home Transportation Arrangement Private vehicle Referrals Initiated None needed Whiteboard Updated in Patient Room with Yes name and ext. # of Senior Administrator Support Review Status In Process Next Review Type Continued Stay Review
--- NOTE | 2019-02-10 17:42 | PC.NURSE ---
A&OX3. pt and waiting for insurance to call. PIV removed by day shift RN. discharge teaching done. taxi cab was called.
--- NOTE | 2019-02-12 11:03 | DI.NM.S_ITS ---
DATE OF SERVICE: 02/10/2019 PROCEDURE: Exercise perfusion study. INDICATIONS: Left shoulder/arm pain, underlying CAD, hypertension, hyperlipidemia. RADIOPHARMACEUTICAL: 25.9 mCi technetium-99m Myoview IV was injected at stress. This is a stress exercise study only. CARDIAC STRESS: Patient underwent exercise perfusion study under the supervision of an attending staff using standard Luciano protocol. She walked on Luciano protocol for 6 minutes 36 seconds, achieved 89% of target heart rate, 7 METs of workload, and normal blood pressure response. Baseline EKG was sinus rhythm with some nonspecific ST changes. Stress EKG revealed some nonspecific ST changes. Occasional PVCs seen. No significant sustained arrhythmias seen. Patient felt fatigue. RAW DATA: There was increased of diaphragmatic activity. GATED STUDY: Stress LV ejection fraction 95% without any significant wall motion abnormalities. Stress end-diastolic volume is 39 mL. Lung/heart ratio is 0.34, which is within normal limits. MYOCARDIAL PERFUSION SCAN: Stress supine and stress prone images revealed normal myocardial perfusion. CONCLUSION: This is a normal myocardial perfusion study. No convincing ischemia infarction. Hyperdynamic post stress left ventricular (LV) function. Patient walked on Luciano protocol for 6 minutes 36 seconds with 89% of target heart rate. Functional aerobic impairment -40%. Overall, this is a low-risk myocardial perfusion scan. Tamy Strong - MATTHIEU/angel/ doc#: [id number]/job#: [id number] dd: 02/10/2019 12:37:00 dt: 02/10/2019 14:48:00 DICTATING MD/COPIES TO: Jovanni Dee MD COPIES MNE: EVAN
== END 2019-02-10 17:10 | disposition home or self-care (01) ==
LOC: ED 11:57 → AC 12:27
PROVIDERS: Nurse Practitioner Adult Health; Admitting Provider Family Medicine; Emergency Provider Emergency Medicine; Visit Provider Family Medicine
DX: R07.9 Chest pain, unspecified (principal); I10 Essential (primary) hypertension; E78.5 Hyperlipidemia, unspecified
CPT/HCPCS: 36415; 36591; 71045; 78451; 80053; 80061; 81003; 82550; 82553; 83690; 83880; 84484; 85025; 85610; 85730; 93005; 93010; 93016; 93017; 93018; 93306; 99283; 99285; G0378; A9502; J1650